=== PATIENT | female | born 1945 | race Caucasian/White ===

== ENCOUNTER 2020-12-30 16:12 | Inpatient (IN) | payer MEDICARE, BC ==
[~2020-12-30] VITALS: Ht 152.4 cm; Wt 53.1 kg
--- NOTE | 2020-12-30 16:30 | NUR ---
There is no information about current home medications in the transfer paperwork, pt unable to provide the information.
[2020-12-30 17:05] LABS: ACETAMINOPHEN < 2.0 ug/mL (10-30)
[2020-12-30 17:15] VITALS: BP 122/67
--- NOTE | 2020-12-30 17:16 | NUR ---
PT WAS EVALUATED BY DR ALVARADO. REPORT WAS GIVEN TO RN MHU. PT WAS TRANSFERED TO MHU ROOM #[id number].
--- NOTE | 2020-12-30 17:28 | NUR ---
Gps/Manager Track- Received report from Víctor ESTRELLA (Berny)Admitted a 75 years old female via wheel chair from ER, alert, oriented x 3, from [facility] . Extremely anxious, interactive , but extremely talkative, hyperverbal. Able to provide simple answers to simple question. Admitted as Gravely Disabled (demonstrating an illogical disorganized thought process and labile affect , she expresses have" Bionic Ears" , unable to express a clear and consistent plan for self care demonstrate symtoms of mary (increased rate of speech flight of ideas , distractability , irritability expresses non adherence.Called her daughter Lata from [place] ([phone]) informed of the admission to the MHU and current behavior. Daughter does not want to talk to her, claimed her brother in in [facility] wont be back till January 13, 2021([phone]). Patient verbalized wanting to leave and smoke , unable to get a clear history. Routine admission care done.
[2020-12-30] MEDS ORDERED: MAG HYDROX/AL HYDROX/SIMETH 30 ML LIQUID UDC PO PRN (17:30)
[2020-12-30] MEDS ORDERED: BLOOD SUGAR DIAGNOSTIC 1 EACH STRIP VI ONE (17:30)
[2020-12-30] MEDS ORDERED: MAGNESIUM HYDROXIDE 30 ML LIQUID UDC PO PRN (17:30)
[2020-12-30 20:09] VITALS: BP 124/66
[2020-12-30] MEDS: LORAZEPAM 0.5 MG TABLET PO PRN (20:12)
[2020-12-31] MEDS: LORAZEPAM 0.5 MG TABLET PO PRN (03:49)
--- NOTE | 2020-12-31 03:50 | NUR ---
Patient awake, very labile mood and easily agitated. Needs frequent redirection. Appears anxious. Pt. given Ativan 0.5mg po prn. Will continue to monitor and assess.
--- NOTE | 2020-12-31 04:26 | NUR ---
Patient awake, wandering in the hallway. Agitated and verbally abusive towards staff. Will continue to monitor and assess.
[2020-12-31 07:30] VITALS: BP 96/49
[2020-12-31 07:35] LABS: BASOPHILS # (AUTO) 0.1 K/uL (0.0-8.0); BASOPHILS % (AUTO) 1.1 % (0.0-2.0); EOSINOPHILS # (AUTO) 0.1 K/uL (0.0-0.7); EOSINOPHILS % (AUTO) 1.7 % (0.0-7.0); HEMATOCRIT 33.1 % (31.2-41.9); LYMPHOCYTES # (AUTO) 1.9 K/uL (20.0-40.0); LYMPHOCYTES % (AUTO) 28.9 % (20.5-51.5); MEAN CORPUSCULAR HEMOGLOBIN 19.1 uug (24.7-32.8); MEAN CORPUSCULAR HGB CONC 30 g/dL (32.3-35.6); MEAN CORPUSCULAR VOLUME 63.3 fL (75.5-95.3); MONOCYTES # (AUTO) 0.6 K/uL (2.0-10.0); MONOCYTES % (AUTO) 8.6 % (0.0-11.0); NEUTROPHILS # (AUTO) 3.9 K/uL (1.8-8.9); NEUTROPHILS % (AUTO) 59.7 % (38.5-71.5); PLATELET COUNT (AUTO) 319 K/uL (179-408); RED BLOOD CELL COUNT(AUTO) 5.23 MIL/uL (3.63-4.92); WHITE BLOOD COUNT (AUTO) 6.6 K/uL (3.8-11.8)
[2020-12-31 07:49] LABS: BILIRUBIN,TOTAL 0.3 mg/dL (0.2-1.0); CREATININE 0.6 mg/dL (0.6-1.3); MAGNESIUM 2.2 mg/dL (1.8-2.4); PHOSPHOROUS 4.1 mg/dL (2.5-4.9); POTASSIUM 4.7 mmol/L (3.5-5.1)
[2020-12-31 08:18] LABS: THYROID STIMULATING HORMONE 1.814 mIU/mL (0.358-3.740)
[2020-12-31 08:49] LABS: EOSINOPHILS % (MANUAL) 1 % (0-8); LYMPHOCYTES % (MANUAL) 36 % (20-40); MONOCYTES % (MANUAL) 4 % (2-10); MYELOCYTES % 2 % (0-0); NEUTROPHILS % (MANUAL) 57 % (42-75)
[2020-12-31] MEDS: NICOTINE 21 MG/24HR PATCH TD SCH (08:54)
--- NOTE | 2020-12-31 11:56 | NUR ---
Gps/Gold Letterer- A Dr Ry Lockwood called(Opthalmologist) patient called him and informed she is not getting her eye gtts. . Dr Ferrer claimed patient needed to be on Zylet 1 gtt to her left eye daily , and artificial tears( refresh) as needed dry eyes. Informed Opthalmologist will informed the Medical Doctor assigned for her at this Hospital .
[2020-12-31] MEDS ORDERED: OLANZAPINE 10 MG VIAL IM ONE (13:30)
[2020-12-31] MEDS ORDERED: LORAZEPAM 2 MG/1 ML VIAL IM ONE (13:30)
--- NOTE | 2020-12-31 13:40 | NUR ---
Gps/Digital Music Instructor- Patient extremely anxious, agitated, yelling and screaming at the Nurses and calling them names. Dr Pineda was called by Charged Nurse Malka, orders received. Patient verbalizing she cant walk and needing assistance , patient was ambulated back to her room with 2 staff assisting her, pretending she cant walk anymore, claimed P.T. came to see her/evaluated her, and she does not need any therapy, patient was independent with her ambulations/steady gait . Patient had been pacing back and forth the hallway most of the day, intrusive , touching patient , discouraged from doing so, difficulty redirecting patient, having crying spells from time to time. Continue to monitor behavior, providing safe environment
--- NOTE | 2020-12-31 15:41 | NUR ---
Gps/Residential Mortgage Underwriter- Dr Ry Ferrer ([phone]) Opthalmologist in [place], [place] .patient's own Opthalmologist)
[2020-12-31 16:00] VITALS: BP 109/49
--- NOTE | 2020-12-31 16:22 | NUR ---
Gps/Belt Back Operator- Called Dr Ferrer (pt. own Opthalmologist) Hosp. does not carry medication Roxanneylet, left message , if ok to use trobarmycin/dexamethasone 0.3/1.3% (equivalent /Pharmacy), Herlinda KING informed
--- NOTE | 2020-12-31 17:00 | NUR ---
Gps/Senior Infrastructure Architect- Waiting return call from Dr Ferrer (Opthalmology)
--- NOTE | 2020-12-31 18:40 | NUR ---
Gps/Pipe Organ Builder- Patient ate dinner, in her room. Quiet at this time, sleeping in bed.Monitored safety
[2020-12-31 20:10] VITALS: BP 101/50
[2020-12-31] MEDS: DIVALPROEX SPRINKLE 125 MG CAP.SPRINK PO SCH (21:13)
[2020-12-31] MEDS: OLANZAPINE ZYDIS 5 MG TAB.RAPDIS PO SCH (21:13)
[2020-12-31] MEDS: POLYVINYL ALCOHOL OPHT DROPS 15 ML BOTTLE EACHEYE PRN (21:30)
[2020-12-31] MEDS: ACETAMINOPHEN 325 MG TABLET PO PRN (21:30)
--- NOTE | 2020-12-31 21:30 | NUR ---
RECEIVED PATIENT IN HER ROOM IN BED. SHE IS NOTED A/O X 3. HER MOOD IS IRRITABLE, AFFECT IS HOSTILE. SHE IS NOTED OPPOSITIONAL AND SARCASTIC. POOR INSIGHT INTO HIS ADMISSION TO MHU IS NOTED, SHE STATED, "I AM IN FDC HERE". PT REQUIRED REDIRECTIONS AND LIMITATION SETTING. SHE WAS ABLE TO COMPLY WITH MEDICATION REGIMENT. DENIED SI/HI//AH. SHE IS ABLE TO VERBALLY CFS. V/S STABLE. SHE IS REASSURED FOR HER SAFETY. SAFETY AND FALL PRECAUTION IN PLACE. WILL CONTINUE TO MONITOR.
--- NOTE | 2021-01-01 06:52 | NUR ---
patient slept for approx 4.30 hrs through the night. she is noted easily irritable, hard to redirect but less hyperverbal less verbally aggressive, less sarcastic. PO PRN sleeping pill were offered but patient refused. will continue to monitor,
[2021-01-01 07:30] VITALS: BP 127/61
--- NOTE | 2021-01-01 07:30 | NUR ---
Received report from DELORES Kenny. All questions, comments, and concerns were addressed. Received patient awake, in her assigned room. Bed is in low and locked position.
[2021-01-01] MEDS ORDERED: OLANZAPINE 10 MG VIAL IM ONE (07:45)
[2021-01-01] MEDS ORDERED: LORAZEPAM 2 MG/1 ML VIAL IM ONE (07:45)
--- NOTE | 2021-01-01 08:06 | NUR ---
Patient standing in the hallway crying, asked this automotive service writer for water and for assistance to use the restroom to provide a urine sample. This automotive service writer attempted to help patient, but patient became angry and labile. Patient attempted to urinate in the middle of the hallway and when she was redirected by this automotive service writer, poured the cup of water over her head. Patient yelling and cursing at staff, noted with paranoid, grandiose, and persecutory delusions. Patient is not redirectable at this time, is escalating in behavior, and has no regards to her safety or the safety of others. notified. Orders received for Zyprexa 5 mg IM once and Ativan 1 mg IM once. Patient escorted to room by staff and IM administered with no adverse reaction. Patient provided with education about medication, impulse control, and maintaining her safety.
[2021-01-01 08:16] LABS: *BILIRUBIN,URIN NEGATIVE (NEGATIVE); *BLOOD, URINE NEGATIVE (NEGATIVE); *CLARITY,URINE CLEAR (CLEAR); *COLOR,URINE YELLOW (YELLOW); *KETONES,URINE NEGATIVE (NEGATIVE); *UROBILINOGEN,URINE 0.2 E.U./dl (NORMAL); LEUKOCYTE ESTERASE ,URINE NEGATIVE (NEGATIVE); NITRITE, URINE NEGATIVE (NEGATIVE); PH,URINE 7.5 (5.0-8.0); UGLUCOSE NEGATIVE (NEGATIVE)
[2021-01-01] MEDS: NICOTINE 21 MG/24HR PATCH TD SCH (08:25)
[2021-01-01] MEDS: DIVALPROEX SPRINKLE 125 MG CAP.SPRINK PO SCH ×2 (08:25→20:04)
[2021-01-01] MEDS: OLANZAPINE ZYDIS 5 MG TAB.RAPDIS PO SCH ×3 (08:25→16:23)
--- NOTE | 2021-01-01 09:36 | NUR ---
Firearms Report: Track Production Engineer completed and submitted a [employer] firearms report for 5150 grave disability certification. A copy of report has been placed in patient chart.
--- NOTE | 2021-01-01 09:49 | NUR ---
SW Initial Discharge Plan: Patient will need a nursing facility upon discharge. This SW attempted to contact patient's daughter Amelia ([phone]), however, was unavailable at this time. This SW will contact again. This SW will work with the MD, treatment team, and family to help coordinate proper discharge.
--- NOTE | 2021-01-01 09:49 | NUR ---
SW Family Contact: This SW attempted to contact patient's daughter Amelia ([phone]), however, was unavailable at this time. This SW will contact again.
--- NOTE | 2021-01-01 12:54 | NUR ---
SW Family Contact: This SW spoke with daughter Amelia ([phone]) to gather collateral and discuss treatment and discharge plan. Amelia reported that she lives in [place] and her brother lives in [facility]. She expressed her brother will be coming down to [place] on January 13. Amelia reported that patient sold her house a month ago and has been living in her car or motels. She expressed that patient will need a place. Amelia stated she is unsure if she is the DPOA or her brother. She expressed that she is unable to find the documents at this time. Amelia expressed that if she is able to locate the documents she will send it to this SW or to the unit. SW discussed discharge planning and gave her options that patient will be needing a nursing facility. She was agreeable with this plan.
--- NOTE | 2021-01-01 13:40 | NUR ---
SW Individual Note: scrap worker met with patient for brief counseling to help address patient's presenting problem aggressive behavior. Patient did not want to conduct therapy at this time and was unable to have a proper conversation due to her confusion and aggression.
[2021-01-01 15:25] VITALS: BP 126/52
[2021-01-01] MEDS: LORAZEPAM 0.5 MG TABLET PO PRN (16:20)
[2021-01-01] MEDS: ACETAMINOPHEN 325 MG TABLET PO PRN (16:20)
--- NOTE | 2021-01-01 19:45 | NUR ---
Patient alert but forgetful no complain of pain, patient in dining room, socializing with other resident, patient has episode of instigator, but redirectable, cont to monitor.
[2021-01-01 20:03] VITALS: BP 102/57
[2021-01-01] MEDS: TEMAZEPAM 7.5 MG CAPSULE PO PRN (23:41)
--- NOTE | 2021-01-02 05:52 | NUR ---
Patient slept for few hours only, awake earlier instructed to go back to bed to get some more sleep. Patient calm cooperative, and redirectable at this time. cont to monitor.
[2021-01-02 07:30] VITALS: BP 116/49
[2021-01-02 07:34] LABS: IRON, SERUM 21 ug/dL (50-175)
[2021-01-02 07:44] LABS: FERRITIN 10 ng/mL (8-252)
--- NOTE | 2021-01-02 08:37 | NUR ---
SNF Referral: This SW sent clinicals to Tereso brady for placement option. This SW sent to [facility] ([phone]) and sent H & P, progress notes, and medication list.
[2021-01-02] MEDS: DIVALPROEX SPRINKLE 125 MG CAP.SPRINK PO SCH ×4 (08:59→21:41)
[2021-01-02] MEDS: ACETAMINOPHEN 325 MG TABLET PO PRN (09:00)
[2021-01-02] MEDS: NICOTINE 21 MG/24HR PATCH TD SCH (09:00)
[2021-01-02] MEDS: OLANZAPINE ZYDIS 5 MG TAB.RAPDIS PO SCH ×2 (09:00→16:42)
--- NOTE | 2021-01-02 10:27 | NUR ---
PAVEL Family Contact: SW received a phone call from patient's DPOA Amelia ([phone]) who stated she will send DPOA document. Amelia stated she would want to speak to doctor Pineda. This SW notified doctor Pineda.
--- NOTE | 2021-01-02 10:30 | NUR ---
DPO and AHCD Documents: This SW received DPOA and ACHD documents from patient's daughter Amelia ([phone]) and this SW placed in patient's chart. Addendum: 01/02/21 at 1031 by PAVEL MARTINEZ Disregard
--- NOTE | 2021-01-02 10:31 | NUR ---
DPOA and AHCD Documents: This SW received DPOA and ACHD documents from patient's daughter Amelia ([phone]) and this SW placed in patient's chart.
--- NOTE | 2021-01-02 14:07 | NUR ---
SNF Contact: This SW received a phone call from Tereso brady ([phone]) and stated that [facility] and [facility] refused patient because of a workers comp case and stated that they are unable to handle pt's behavior. Hamilton admin from [facility] ([phone]) who stated they are accepting pt.
--- NOTE | 2021-01-02 15:04 | NUR ---
SNF Contact: This SW received a call from Tereso brady and Hamilton Zuleta from [facility] ([phone]) who stated that patient is accepted.
[2021-01-02 15:27] VITALS: BP 127/50
--- NOTE | 2021-01-02 15:39 | NUR ---
SW Family Contact: This SW spoke with daughter MIGUEL A Cisneros ([phone]) who stated that she is worried that her mother will be the blame of her transferring to the nursing facility. Amelia GRADY feels guilty of her transferring to a nursing facility.
--- NOTE | 2021-01-02 15:45 | NUR ---
PAVEL Individual Therapy: poultry farmworker met with patient for brief counseling and discuss patient's presenting problem aggressive behavior. Patient appears manic and labile. Patient pacing the hallway and crying. Patient unable to have a proper conversation at this time do to inappropriate language.
[2021-01-02] MEDS: POLYVINYL ALCOHOL OPHT DROPS 15 ML BOTTLE EACHEYE PRN (16:42)
--- NOTE | 2021-01-02 18:18 | NUR ---
Shift summary: Pt ambulating in [facility], A&Ox1-2, able to make needs known, calm upon approach at this time. Pt requesting toilet paper in shared restroom, EVS notified. Pt denies pain/discomfort at this time. Pt declined medications this am, Dr. Pineda aware. Pt requested PRN eye drops this afternoon, administered per order. Upon interview today, pt denied SI/HI/AH/VH, was able to verbally contract for safety. Redirection, reality orientation, and reassurance provided PRN. Pt able to perform self care and ADLs. Pt able to safely ambulate. Safety ensured.Will continue to monitor.
--- NOTE | 2021-01-02 18:25 | NUR ---
Levi petition faxed to court will follow up in am.
--- NOTE | 2021-01-02 19:00 | NUR ---
Patient in the dining room, pacing in the hallways, goes to the activity room. Patient has an intrusive behavior goes to everybody business, cont to redirect behavior. cont to monitor.
--- NOTE | 2021-01-02 21:32 | NUR ---
Patient awake no complain of pain, patient refused po medications, gives all kinds of excuses. refused to take sleeping pill also. non complaint with medication. cont to monitor.
[2021-01-02] MEDS: TEMAZEPAM 7.5 MG CAPSULE PO PRN (21:37)
--- NOTE | 2021-01-02 21:37 | NUR ---
Patient took depakote and sleeping pill after numerous times of persuation. Patient refused to sleep in her bed, complain of roomates too noisy, however, roomates was asleep most of the night, Patient refused ativan when offered for anxiety. stayed on the tv room, cont to monitor.
[2021-01-02 21:45] VITALS: BP 145/50
[2021-01-03] MEDS: POLYVINYL ALCOHOL OPHT DROPS 15 ML BOTTLE EACHEYE PRN ×3 (04:00→22:45)
[2021-01-03] MEDS: ACETAMINOPHEN 325 MG TABLET PO PRN (04:00)
--- NOTE | 2021-01-03 06:00 | NUR ---
Patient took restoril for sleep, work for few minutes then awake again, with anxiety wanted to call the daughter this early, redirect patient behavior with some help. will offer ativan as order for anxiety.
[2021-01-03] MEDS: LORAZEPAM 0.5 MG TABLET PO PRN (06:09)
--- NOTE | 2021-01-03 06:25 | NUR ---
PATIENT FIXATED ABOUT HER EYES HAS INFECTION NEEDS SURGERY, BUT BOTH EYES ARE CLEAR NO REDNESS NO DRAINAGE NOTED, AND COMPLAIN OF PAIN. PATIENT GIVEN ARTIFICIAL TEARS ORDERED FOR DRY EYES. PATIENT REDIRECTED WITH SOME HELP. ENDORSED TO NEXT SHIFT.
[2021-01-03 07:30] VITALS: BP 127/39
--- NOTE | 2021-01-03 07:30 | NUR ---
Received report from DELORES Wells. All questions, comments, and concerns were addressed. Received patient awake, pacing in the hallway and in the dining room.
[2021-01-03] MEDS: OLANZAPINE ZYDIS 5 MG TAB.RAPDIS PO SCH ×2 (09:00→16:16)
[2021-01-03] MEDS: DIVALPROEX SPRINKLE 125 MG CAP.SPRINK PO SCH ×2 (09:00→20:34)
[2021-01-03] MEDS: NICOTINE 21 MG/24HR PATCH TD SCH (09:00)
--- NOTE | 2021-01-03 09:35 | NUR ---
SW Family Contact: This SW contacted patient's DPOA Amelia ([phone]) and left a voicemail that today is patient's court hearing.
--- NOTE | 2021-01-03 12:44 | NUR ---
SW Court Hearing: Patient's court hearing was held today and it was upheld for GD.
--- NOTE | 2021-01-03 14:04 | NUR ---
SW Family Contact: This SW spoke with patient's daughter Amelia GRADY ([phone]) and reported the outcome of the court hearing and stated pt is upheld for GD. This SW also notified her that the doctor filed for a Riese hearing because patient is refusing oral medications. This SW educated MIGUEL A on what a Riese hearing is. This SW stated patient is accepted at [facility], she was agreeable with this plan and stated she is unable to take care of her because she lives in [place] and her brother resides in [facility].
--- NOTE | 2021-01-03 14:30 | NUR ---
SW Individual Therapy: sheet metal worker helper met with patient for brief counseling and discuss patient's presenting problem aggressive behavior. Patient appears manic and labile. Patient appeared delusional and paranoid stating that another patient is her "aunt". This SW reoriented patient back to reality.
--- NOTE | 2021-01-03 15:00 | NUR ---
Levi hearing tomorrow at 3 pm, Dr. Edwin duque.
[2021-01-03 16:00] VITALS: BP 111/58
[2021-01-03 20:03] VITALS: BP 109/69
[2021-01-03] MEDS: TEMAZEPAM 7.5 MG CAPSULE PO PRN (22:44)
--- NOTE | 2021-01-04 06:32 | NUR ---
patient is alert and oriented. Compliant with medication, no adverse reaction noted. Patient is labile and goal oriented to return back to [place] to see her retina specialist stating "I had an experimental lens put in and I need my drops". Patient c/o roommate and inability to sleep the night before. PRN medications administered per order. Patient slept 5.00 hours. patient is able to communicate needs to staff. All needs were met and attended to. Safety measures and checks remain intact.
--- NOTE | 2021-01-04 07:20 | NUR ---
Received pt. Juma, in the activity area. easily approachable and follows commands.
[2021-01-04 07:30] VITALS: BP 128/69
[2021-01-04] MEDS: NICOTINE 21 MG/24HR PATCH TD SCH (08:27)
[2021-01-04] MEDS: DIVALPROEX SPRINKLE 125 MG CAP.SPRINK PO SCH ×2 (08:27→21:00)
[2021-01-04] MEDS: OLANZAPINE ZYDIS 5 MG TAB.RAPDIS PO SCH ×2 (08:27→16:53)
--- NOTE | 2021-01-04 08:35 | NUR ---
SNF Referral: This SW faxed to admin Niya from [facility] for placement option.
--- NOTE | 2021-01-04 09:37 | NUR ---
Patient compliant with medications, pt. pacing back and forth and noted to interacting and at times interrupting other patient. Patient hyperverbal and stating she needs and eye DrPeace and needs to travel to [place] where her Dr. is waiting for her". Easily redirected and noted to be engaged in activity room routine.
--- NOTE | 2021-01-04 12:16 | NUR ---
SNF Referral: This SW faxed patient's clinicals to [facility] to Niya Zuleta for review. This SW faxed H & P notes, progress notes, and medication list. She stated that they are willing to take pt once she is stable.
--- NOTE | 2021-01-04 14:53 | NUR ---
SW Individual Therapy: manager workers compensation met with patient for brief counseling and discuss patient's presenting problem aggressive behavior. Patient appears manic and labile. Patient appeared delusional stating that the "[place]" police is here after her. This SW advised that she is at the hospital and she is safe. However, pt did not want to participate in therapy at this time.
[2021-01-04 16:00] VITALS: BP 139/59
[2021-01-04] MEDS: ACETAMINOPHEN 325 MG TABLET PO PRN (17:00)
[2021-01-04] MEDS ORDERED: HALOPERIDOL LACTATE 5 MG/1 ML VIAL IM PRN (17:00)
--- NOTE | 2021-01-04 18:41 | NUR ---
Left pt. AAOX2-3. remains hyper-verbal interacting with all pt's. compliant with nursing care and medications. Will continue with care plan.
[2021-01-04 20:03] VITALS: BP 114/59
[2021-01-04] MEDS: TEMAZEPAM 7.5 MG CAPSULE PO PRN ×3 (21:00→23:37)
--- NOTE | 2021-01-05 05:31 | NUR ---
Pt has been intrusive last night; non compliant with meds but eventually took her medication; hyper verbal; safety maintained; continue to monitor.
[2021-01-05 07:30] VITALS: BP 135/57
[2021-01-05] MEDS: DIVALPROEX SPRINKLE 125 MG CAP.SPRINK PO SCH ×2 (08:29→20:10)
[2021-01-05] MEDS: OLANZAPINE ZYDIS 5 MG TAB.RAPDIS PO SCH (08:29)
[2021-01-05] MEDS: LORAZEPAM 0.5 MG TABLET PO PRN ×2 (08:30→13:05)
[2021-01-05] MEDS: NICOTINE 21 MG/24HR PATCH TD SCH (08:45)
--- NOTE | 2021-01-05 09:38 | NUR ---
Patient seen wandering in the sharma, she is very intrusive with patients. Refuses to leave patients alone. Patient is hyperverbal. Compliant with medication. Oral PRN given.
[2021-01-05] MEDS: POLYVINYL ALCOHOL OPHT DROPS 15 ML BOTTLE EACHEYE PRN (13:06)
[2021-01-05] MEDS ORDERED: HALOPERIDOL LACTATE 5 MG/1 ML VIAL IM PRN (14:45)
[2021-01-05 15:36] VITALS: BP 119/51
[2021-01-05] MEDS ORDERED: LORAZEPAM 0.5 MG TABLET PO ONE (16:00)
[2021-01-05] MEDS: HALOPERIDOL 5 MG TABLET PO SCH (16:14)
--- NOTE | 2021-01-05 17:30 | NUR ---
Patient is verbally abusive towards staff. She is intrusive with other patient's matters. Uncooperative when asked to not disturb others. Patient is hyperverbal. An order for 1 time PRN requested and administered. Patient continues to threaten staff. Patient is preoccupied with her eye medication. Constantly goes to nurses station asking for medication. According to her, these medications were prescribed by a doctor in [place]. There is no record of such medication. Per CEMENT TRUCK LOADER Aminta Chadwick, patient will need to follow up with her PCP for these medication. She is compliant with her medication.
[2021-01-05] MEDS: ACETAMINOPHEN 325 MG TABLET PO PRN (20:12)
[2021-01-05 20:48] VITALS: BP 101/40
--- NOTE | 2021-01-06 05:58 | NUR ---
GPS: Remain calm and cooperative with meds and care. slept 9 hrs through the night. no agitation noted . resting in bed comfortably.continue plan of care.
[2021-01-06 07:30] VITALS: BP 117/76
[2021-01-06] MEDS: DIVALPROEX SPRINKLE 125 MG CAP.SPRINK PO SCH ×2 (08:30→20:16)
[2021-01-06] MEDS: HALOPERIDOL 5 MG TABLET PO SCH ×2 (08:31→16:23)
[2021-01-06] MEDS: NICOTINE 21 MG/24HR PATCH TD SCH (08:31)
[2021-01-06] MEDS: POLYVINYL ALCOHOL OPHT DROPS 15 ML BOTTLE EACHEYE PRN (11:51)
[2021-01-06 15:51] VITALS: BP 109/52
--- NOTE | 2021-01-06 16:49 | NUR ---
patient spits out her haldol medication and been irritable manic labile, patient refused her haldol, patient aware that she on RIESE, patient agitated , patient threatening staff " that's the end of your career " told the technical writer and editor, patient was given HALDOL via IM per CLYDE protocol, patient tolerated the medication was monitored q15 for safety no sign of distress
[2021-01-06 20:00] VITALS: BP 123/58
--- NOTE | 2021-01-07 05:56 | NUR ---
GPS: Remain calm and cooperative with meds and care. slept 7.15 hrs through the night. took shower this morning. no agitation noted . resting in bed comfortably.continue plan of care.
[2021-01-07 07:30] VITALS: BP 130/51
[2021-01-07] MEDS: HALOPERIDOL 5 MG TABLET PO SCH ×2 (08:33→20:13)
[2021-01-07] MEDS: NICOTINE 21 MG/24HR PATCH TD SCH (08:34)
[2021-01-07] MEDS: DIVALPROEX SPRINKLE 125 MG CAP.SPRINK PO SCH ×2 (08:34→20:13)
[2021-01-07] MEDS: POLYVINYL ALCOHOL OPHT DROPS 15 ML BOTTLE EACHEYE PRN ×2 (10:38→20:19)
[2021-01-07] MEDS ORDERED: HALOPERIDOL LACTATE 5 MG/1 ML VIAL IM PRN (12:45)
[2021-01-07 19:58] VITALS: BP 112/52
--- NOTE | 2021-01-07 21:00 | NUR ---
RECEIVED PATIENT IN IN THE DAY ROOM. SHE IS NOTED A/O X 3. SHE IS NOTED ANXIOUS, FIXED ON HER MEDICATIONS. SHE STATED, "I DON'T WANT TO TAKE MY PILL NOW BECAUSE I GET REALLY SLEEPY". PATIENT WAS REASSURED AND REDIRECTED. MOOD IS LABILE, AFFECT IS IRRITABLE. PATIENT IS COMPLIANT WITH MEDICATION REGIMENT AT THIS TIME. SHE IS REASSURED FOR HER SAFETY. SAFETY AND FALL PRECAUTION IN PLACE. V/S STABLE. WILL CONTINUE TO MONITOR.
[2021-01-08 07:30] VITALS: BP 115/50
--- NOTE | 2021-01-08 07:30 | NUR ---
Received report from DELORES Kenny. All questions, comments, and concerns were addressed. Received patient awake, alert and oriented. Bed is in low and locked position.
[2021-01-08] MEDS: DIVALPROEX SPRINKLE 125 MG CAP.SPRINK PO SCH ×2 (08:01→20:19)
[2021-01-08] MEDS: NICOTINE 21 MG/24HR PATCH TD SCH (08:01)
[2021-01-08] MEDS: HALOPERIDOL 5 MG TABLET PO SCH ×2 (08:01→20:19)
[2021-01-08] MEDS: POLYVINYL ALCOHOL OPHT DROPS 15 ML BOTTLE EACHEYE PRN (08:57)
--- NOTE | 2021-01-08 14:20 | NUR ---
SNF Contact: This SW faxed patient's clinicals to [facility] to Niya Zuleta for review if pt is accepted or not.
--- NOTE | 2021-01-08 14:21 | NUR ---
SW Family Contact: This SW spoke with patient's daughter Amelia GRADY ([phone]) and updated on patient's status.
--- NOTE | 2021-01-08 15:19 | NUR ---
patient is alert and oriented. patient is anxious, restless, intrusive with peers and staff, and labile in mood, but is cooperative with staff and redirectable. patient is adherent with medication after prompting and education about importance of medication adherence. patient denies SI/HI, denies AH/VH. patient requires redirection and reality orientation during times of impulsivity and mood lability but is amenable to education and cooperative.
[2021-01-08 15:38] VITALS: BP 120/55
[2021-01-08 20:00] VITALS: BP 122/57
[2021-01-08] MEDS: TEMAZEPAM 7.5 MG CAPSULE PO PRN (22:59)
--- NOTE | 2021-01-09 04:47 | NUR ---
Pt asleep comfortably with no s/s of distress. Denies pain and SI, compliant with meds and cooperative with care. Observed to be anxious and restless earlier in the shift. Pt then requested a sleeping pill at bedtime; administered per MD order with noted efficacy. Safety precautions in place, frequent rounds done.
[2021-01-09 07:30] VITALS: BP 130/48
[2021-01-09] MEDS: NICOTINE 21 MG/24HR PATCH TD SCH (08:13)
[2021-01-09] MEDS: DIVALPROEX SPRINKLE 125 MG CAP.SPRINK PO SCH ×2 (08:13→20:37)
[2021-01-09] MEDS: HALOPERIDOL 5 MG TABLET PO SCH ×2 (08:13→20:37)
[2021-01-09] MEDS: POLYVINYL ALCOHOL OPHT DROPS 15 ML BOTTLE EACHEYE PRN ×2 (08:14→22:03)
--- NOTE | 2021-01-09 13:45 | NUR ---
Individual Therapy: bridge ironworker met with patient for brief counseling to help address patient's presenting problem aggressive behavior. Patient appeared to cooperative and calm with this SW. Patient stated she is not aggressive and that she is calm. Patient expressed she wants to go back to [place] to continue his treatment for her eyes. Patient is fixated on her eyes, however, pt did appear to be calm. SW actively listened and encouraged pt to stay calm.
[2021-01-09] MEDS ORDERED: HALOPERIDOL DECANOATE 50 MG/1 ML AMPUL IM ONE (14:30)
[2021-01-09] MEDS: FERROUS SULFATE 325 MG TABEC PO SCH ×2 (14:55→20:41)
--- NOTE | 2021-01-09 14:58 | NUR ---
SNF Contact: This SW received a phone call from [facility] from [facility] stated pt is accepted and they will provide transportation.
--- NOTE | 2021-01-09 14:58 | NUR ---
SW Family Contact: This SW spoke with patient's daughter Amelia GRADY ([phone]) and stated pt is accepted at [facility] and she was agreeable with this. SW advised that pt will be discharged 5/5 and she was agreeable with this.
[2021-01-09 15:25] VITALS: BP 106/42
--- NOTE | 2021-01-09 15:39 | NUR ---
Haldol Decanoate 50 mg IM given and COVID - 19 test done for discharge in AM>
[2021-01-09 20:21] VITALS: BP 132/69
--- NOTE | 2021-01-10 05:53 | NUR ---
Patient slept 6.45 hrs.Compliant with medication and care.No bizarre behavior through out the shift. Patient is aware that she will be d/c today.All needs anticipated and met accordingly. Will endorse to oncoming shift.
[2021-01-10 07:30] VITALS: BP 104/57
--- NOTE | 2021-01-10 07:30 | NUR ---
Received report from DELORES Husain. All questions, comments, and concerns were addressed. Received patient awake in her assigned bed. Bed is in low and locked position.
[2021-01-10] MEDS: HALOPERIDOL 5 MG TABLET PO SCH (08:01)
[2021-01-10] MEDS: FERROUS SULFATE 325 MG TABEC PO SCH (08:01)
[2021-01-10] MEDS: DIVALPROEX SPRINKLE 125 MG CAP.SPRINK PO SCH (08:01)
[2021-01-10] MEDS: POLYVINYL ALCOHOL OPHT DROPS 15 ML BOTTLE EACHEYE PRN (08:01)
[2021-01-10] MEDS: NICOTINE 21 MG/24HR PATCH TD SCH (08:01)
--- NOTE | 2021-01-10 08:04 | NUR ---
Discharge Note: Patient will be discharged to [facility], [facility] ([phone]). Patient picking belt operator is arranged by the facilitys transportation for today at 1PM. Roasterman spoke with Niya ([phone]), vp digital marketing social media and crm, who stated patient is accepted at facility today. Patients DPOA daughter Amelia ([phone]) is aware and agreeable with discharge. Patient is alert and oriented x2 and is not able to plan for self-care at this time but is willing to accept care provided for him at the facility. Patient denies any suicidal or homicidal ideation. Patient is aware and agreeable with discharge plans. Patient will follow up with Dr. Nguyen (Military Source Operations Officer) and Dr. Coker (Psychiatrist) at [facility]. Patient presents with euthymic mood and congruent affect. Patient signed the homeless waiver upon discharge and a copy was placed in the chart. Homeless resources were provided and include [address] information line for shelters and homeless resources. A copy of all resources given to patient was also placed in the chart. Patient presented with euthymic mood and congruent affect.
--- NOTE | 2021-01-10 14:30 | NUR ---
DISCHARGE NOTE: Patient is being discharged to [facility]: [place] [address] ([phone]). Patient is being picked [facility] and [facility]. Patient's belongings, valuables, and personal medication inventoried with patient and returned on discharge. Patient provided with instructions about discharge and follow up care, education about discharge medications, and importance of medication adherent. Patient able to verbalize understanding. Patient denies suicidal and homicidal ideation. Skin is clear and intact. Patient is alert and oriented in reality.
== END 2021-01-10 14:30 | DRG 885 ==
LOC: ER 16:19 → GPS 16:34
PROVIDERS: ADMIT Psychiatry & Neurology Psychiatry; ATTEND Nurse Practitioner Acute Care
DX: F25.0 Schizoaffective disorder, bipolar type (principal); E44.1 Mild protein-calorie malnutrition; D50.9 Iron deficiency anemia, unspecified; F43.10 Post-traumatic stress disorder, unspecified; I10 Essential (primary) hypertension; E88.09 Other disorders of plasma-protein metabolism, not elsewhere classified; F29 Unspecified psychosis not due to a substance or known physiological condition; Z20.822 Contact with and (suspected) exposure to COVID-19; Z73.6 Limitation of activities due to disability; Z68.22 Body mass index [BMI] 22.0-22.9, adult; Z96.619 Presence of unspecified artificial shoulder joint; F17.210 Nicotine dependence, cigarettes, uncomplicated; E87.6 Hypokalemia; Z98.84 Bariatric surgery status
CPT/HCPCS: 36415; 70030-TC; 83550; 83735; 84100; 84443; 85025; 87086; A4663; J1630; J1631; J2060; J2358